=== PATIENT | male | born 1985 ===

== ENCOUNTER 2016-08-01 20:13 | Emergency (ER) | payer SELFPAY ==
[2016-08-01 20:39] LABS: BASOPHIL % 0.5 % (0-2); PLATELET COUNT 196 x10^3mcL (130-400); RED CELL DISTRIBUTION WIDTH 12.8 % (11.5-14.5)
[2016-08-01 20:48] LABS: CALCIUM 9.6 mg/dL (8.5-10.1); CARBON DIOXIDE 22.8 mmol/L (21-32); CHLORIDE SERUM 103 mmol/L (98-107); CREATININE SERUM 1.2 mg/dL (0.7-1.3); GFR1 > 60 mL/min; GLUCOSE SERUM 112 mg/dL (74-106); POTASSIUM SERUM 3.4 mmol/L (3.5-5.1); SODIUM SERUM 141 mmol/L (136-145)
[2016-08-01 20:50] LABS: ALBUMIN 4.8 g/dL (3.4-5.0); ALKALINE PHOSPHATASE 66 U/L (46-116); ALT/SGPT 18 U/L (16-63); AMYLASE 33 U/L (25-115); AST/SGOT 46 U/L (15-37); BILIRUBIN TOTAL 0.99 mg/dL (0.20-1.00); LIPASE 160 IU/L (73-393); TOTAL PROTEIN, SERUM 8.1 g/dL (6.4-8.2)
[2016-08-02 06:17] VITALS: BP 114/59
== END 2016-08-02 06:17 | disposition home or self-care (01) ==
LOC: ED 20:13
PROVIDERS: Emergency Medicine
DX: R41.82 Altered mental status, unspecified (principal); F19.10 Other psychoactive substance abuse, uncomplicated; F10.129 Alcohol abuse with intoxication, unspecified; R19.7 Diarrhea, unspecified; Z90.89 Acquired absence of other organs; Z88.0 Allergy status to penicillin
CPT/HCPCS: G0480; J2405; J7030

== ENCOUNTER 2016-08-02 16:21 | Emergency (ER) | payer SELFPAY ==
[2016-08-02 20:09] VITALS: BP 127/73
== END 2016-08-02 20:09 | disposition home or self-care (01) ==
LOC: ED 16:21
DX: K92.1 Melena (principal); Z90.89 Acquired absence of other organs; Z88.0 Allergy status to penicillin